=== PATIENT | male | born 1960 | race Caucasian/White ===

== ENCOUNTER 2019-06-26 05:47 | Emergency (ER) | payer BC ==
[2019-06-26] MEDS ORDERED: Ketorolac 30 MG/ML SDV IM ONE (06:21)
--- NOTE | 2019-06-26 06:26 | EDM.PDOC ---
ED HPI GENERAL MEDICAL PROBLEM - General Chief Complaint: Upper Extremity Injury/Pain Stated Complaint: RT SHOULDER PAIN Time Seen by Provider: 06/26/19 06:21 Source of Information: Reports: Patient History Limitations: Reports: No Limitations - History of Present Illness INITIAL COMMENTS - FREE TEXT/NARRATIVE: States he was doing a lot of push-ups/hands-free and injured his right shoulder. Patient has had pain for the last day. Patient has applied ice and heat without any relief. 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, Heat Therapy right arm Pain Score (Numeric/FACES): 8 - Related Data Allergies Allergy/AdvReac Type Severity Reaction Status Date / Time No Known Allergies Allergy Verified 06/26/19 05:55 Home Meds: Home Meds Cyclobenzaprine [Flexeril] 10 mg PO BEDTIME #10 tab 06/26/19 [Rx] Ibuprofen [Motrin] 600 mg PO Q6H PRN #30 tab 06/26/19 [Rx] Past Medical History HEENT History: Reports: None Cardiovascular History: Reports: None Respiratory History: Reports: None Gastrointestinal History: Reports: None Genitourinary History: Reports: None Musculoskeletal History: Reports: None Neurological History: Reports: None Psychiatric History: Reports: None Endocrine/Metabolic History: Reports: None Insulin Pump Model [employer] Department: N/A Hematologic History: Reports: None Immunologic History: Reports: None Oncologic (Cancer) History: Reports: None Dermatologic History: Reports: None - Infectious Disease History Infectious Disease History: Reports: Chicken Pox, Measles, Mumps - Past Surgical History Head Surgeries/Procedures: Reports: None HEENT Surgical History: Reports: Adenoidectomy, Tonsillectomy GI Surgical History: Reports: Other (See Below) Other GI Surgeries/Procedures: Spleenectomy Musculoskeletal Surgical History: Reports: Other (See Below) Other Musculoskeletal Surgeries/Procedures:: Knee Surgery Social & Family History - Family History Family Medical History: Noncontributory - Tobacco Use Smoking Status *Q: Never Smoker - Caffeine Use Caffeine Use: Reports: Coffee - Recreational Drug Use Recreational Drug Use: No Review of Systems - Review of Systems Review Of Systems: See Below Constitutional: Reports: No Symptoms. Denies: Chills, Diaphoresis, Fever Eyes: Reports: No Symptoms. Denies: Blindness, Blurred Vision Ears: Reports: No Symptoms. Denies: Dizziness, Pain, Tinnitus Nose: Reports: No Symptoms. Denies: Clots, Congestion, Epistaxis, Purulent Discharge, Serosanguinous Discharge Mouth/Throat: Reports: No Symptoms. Denies: Bleeding, Clots, Lip Swelling, Pain , Throat Swelling, Difficulty Swallowing Respiratory: Reports: No Symptoms. Denies: Shortness of Breath, Wheezing, Pleuritic Chest Pain, Hemoptysis Cardiovascular: Reports: No Symptoms GI/Abdominal: Reports: No Symptoms Genitourinary: Reports: No Symptoms Musculoskeletal: Reports: Shoulder Pain Skin: Denies: No Symptoms, Cyanosis, Dryness, Bruising, Pruritis, Change in Color Neurological: Reports: No Symptoms Psychiatric: Reports: No Symptoms ED EXAM, GENERAL - Physical Exam Exam: See Below Free Text/Narrative:: Pain in the right shoulder on palpation. Pain in the joint. Patient has decreased range of motion secondary to pain. Neurovascular intact Exam Limited By: No Limitations General Appearance: Alert, WD/WN, Mild Distress Eye Exam: Bilateral Eye: Normal Fundi, Normal Inspection, PERRL Ears: Normal External Exam, Normal Canal, Hearing Grossly Normal, Normal TMs Ear Exam: Bilateral Ear: Auricle Normal, Canal Normal, Tenderness Nose: Normal Inspection, Normal Mucosa Throat/Mouth: Normal Inspection, Normal Lips Head: Atraumatic, Normocephalic Neck: Normal Inspection, Supple, Non-Tender Respiratory/Chest: No Respiratory Distress, Lungs Clear Cardiovascular: Normal Peripheral Pulses, Regular Rate, Rhythm GI/Abdominal: Normal Bowel Sounds, Soft, Non-Tender, No Abnormal Bruit (Male) Exam: Deferred Rectal (Males) Exam: Deferred Back Exam: Normal Inspection Extremities: Limited Range of Motion. No: Normal Range of Motion, Non-Tender, No Pedal Edema, Normal Capillary Refill Neurological: Alert, Oriented, CN II-XII Intact, Normal Reflexes, No Motor/ Sensory Deficits Psychiatric: Normal Affect, Normal Mood Skin Exam: Warm, Dry, Intact, Normal Color, No Rash Lymphatic: No Adenopathy Course - Vital Signs Last Recorded V/S: Last Vital Signs Temp 96.9 F 06/26/19 05:55 Pulse 77 02/28/20 05:55 Resp 18 06/26/19 05:55 BP 144/85 H 06/26/19 05:55 Pulse Ox 95 06/26/19 05:55 - Orders/Labs/Meds Orders: Active Orders 24 hr Category Date Time Status Shoulder Comp Rt [CR] Stat Exams 06/26/19 06:05 Taken Meds: Medications Discontinued Medications Generic Name Dose Route Start Last Admin Trade Name Freq PRN Reason Stop Dose Admin Ketorolac Tromethamine 30 mg 06/26/19 06:21 Toradol IM 06/26/19 06:22 ONETIME ONE Departure - Departure Time of Disposition: 06:39 Disposition: Home, Self-Care 01 Condition: Good Clinical Impression: Sprain of shoulder - Discharge Information Prescriptions: Cyclobenzaprine [Flexeril] 10 mg PO BEDTIME #10 tab Ibuprofen [Motrin] 600 mg PO Q6H PRN #30 tab PRN Reason: Pain (Moderate 4-6) Instructions: Shoulder Pain, [id number] Referrals: PCP,None [Primary Care Provider] - Forms: ED Department Discharge Additional Instructions: Ice to the affected area every 20 minutes each hour for the next 24 hours while awake Sepsis Event Note - Evaluation Sepsis Screening Result: No Definite Risk - Focused Exam Vital Signs: Vital Signs Temp Pulse Resp BP Pulse Ox 06/26/19 05:55 96.9 F 77 18 144/85 H 95 Date Exam was Performed: 06/26/19 Time Exam was Performed: 06:38 - My Orders Last 24 Hours: My Active Orders 06/26/19 06:05 Shoulder Comp Rt [CR] Stat - Assessment/Plan Last 24 Hours: My Active Orders 06/26/19 06:05 Shoulder Comp Rt [CR] Stat
--- NOTE | 2019-06-26 09:44 | CR ---
INDICATION: Right shoulder pain TECHNIQUE: Shoulder radiograph 3 views right COMPARISON: None FINDINGS: Bone: No acute fractures or aggressive bone lesions are identified. Joint: The glenohumeral joint is unremarkable. The acromioclavicular joint is unremarkable. Soft tissue: Unremarkable. The visualized hemithorax is unremarkable in appearance. No radiopaque foreign bodies are seen. IMPRESSION: 1. No acute osseous injuries or abnormalities are noted. Dictated by: Prasad Saldaña MD @ 06/26/2019 09:42:11 (Electronically Signed)
== END 2019-06-26 07:27 | disposition home or self-care (01) ==
LOC: MW.ED 05:47
DX: S43.401A Unspecified sprain of right shoulder joint, initial encounter (principal); X58.XXXA Exposure to other specified factors, initial encounter; Y93.B2 Activity, push-ups, pull-ups, sit-ups
CPT/HCPCS: 73030; 96372; 99283; J1885

== ENCOUNTER 2022-07-11 08:14 | Emergency (ER) | payer BC | END 2022-07-11 11:17 | disposition home or self-care (01) | LOC: MW.ED 08:14 | DX: S82.391A Other fracture of lower end of right tibia, initial encounter for closed fracture (principal); S82.831A Other fracture of upper and lower end of right fibula, initial encounter for closed fracture; W18.30XA Fall on same level, unspecified, initial encounter | CPT/HCPCS: 29515; 73590-26-RT; 73590-RT; 73610-26-RT; 73610-RT; 99283 ==

== ENCOUNTER 2022-07-13 10:37 | Day surgery (SDC) | payer BC ==
[~2022-07-13 10:37] MED LIST: Albuterol 0.083% 2.5 MG/3 ML Neb Soln NEB PRN; HYDROmorphone 1 MG/ML Syringe IVPUSH PRN; Lactated Ringers 1,000 ML IV SCH; Metoclopramide 10 MG/2 ML SDV IVPUSH PRN; Morphine 2 MG/ML SYRINGE IVPUSH PRN; Naloxone 0.4 MG/ML SDV IVPUSH PRN; Ondansetron 4 MG/2 ML SDV IVPUSH PRN; fentaNYL 50 MCG/ML SDV IVPUSH PRN
[2022-07-13 11:21] LABS: CARBON DIOXIDE,CO2 25.1 mmol/L (21.0-32.0); POTASSIUM,K 4.1 mmol/L (3.5-5.1)
[2022-07-13] MEDS ORDERED: Bupivacaine 0.5% 30 ML SDV ONE (11:28)
[2022-07-13] MEDS ORDERED: Lidocaine 2% 5 ML SDV ONE ×2 (11:29→12:22)
[2022-07-13] MEDS ORDERED: ceFAZolin 2 GM in Premix Bag 1 BAG IV SCH (12:00)
[2022-07-13] MEDS ORDERED: Propofol 200 MG/20 ML SDV ONE (12:22)
[2022-07-13] MEDS ORDERED: Ketorolac 30 MG/ML SDV ONE (12:22)
[2022-07-13] MEDS ORDERED: Lidocaine 2% 11 ML Jelly Filled Syringe ONE (12:22)
[2022-07-13] MEDS ORDERED: Ondansetron 4 MG/2 ML SDV ONE (12:22)
[2022-07-13] MEDS ORDERED: Dexamethasone 4 MG/ML 5 ML MDV ONE (12:22)
[2022-07-13] MEDS ORDERED: fentaNYL 100 MCG/2 ML SDV ONE (12:22)
[2022-07-13] MEDS ORDERED: ceFAZolin 2 GM Vial ONE (12:45)
== END 2022-07-13 15:40 | disposition home or self-care (01) ==
LOC: MW.SDS 10:37
PROVIDERS: ATTEND Orthopaedic Surgery
DX: S82.201A Unspecified fracture of shaft of right tibia, initial encounter for closed fracture (principal); S82.401A Unspecified fracture of shaft of right fibula, initial encounter for closed fracture; M19.90 Unspecified osteoarthritis, unspecified site; Z87.891 Personal history of nicotine dependence; W00.0XXA Fall on same level due to ice and snow, initial encounter
CPT/HCPCS: 27759; 36415; 64445; 64447; 76000; 80048; 85025; A9270; J0690; J1100; J1885; J2405; J2704; J3010; J3490; J7120